=== PATIENT | male | born 1995 | race Caucasian/White ===

== ENCOUNTER 2020-10-05 09:14 | Emergency (ER) | payer OTHER ==
[2020-10-05 09:58] LABS: BASOPHILS # (AUTO) 0.1 10^3/uL (0.0-0.1); BASOPHILS % (AUTO) 1.4 %; EOSINOPHILS # (AUTO) 0.2 10^3/uL (0.0-0.7); EOSINOPHILS % (AUTO) 3.5 %; HCT - HEMATOCRIT 44.9 % (42.0-52.0); HGB - HEMOGLOBIN 15.7 g/dL (14.0-18.0); LYMPHOCYTES # (AUTO) 3.1 10^3/uL (1.5-3.5); LYMPHOCYTES % (AUTO) 47.6 %; MEAN CORPUSCULAR HEMOGLOBIN 32.6 pg (27.0-31.0); MEAN CORPUSCULAR VOLUME 93.3 fL (80.0-94.0); MEAN PLATELET VOLUME 9.5 fL (7.4-11.4); MONOCYTES # (AUTO) 0.5 10^3/uL (0.0-1.0); MONOCYTES % (AUTO) 7.4 %; NEUTROPHILS # (AUTO) 2.6 10^3/uL (1.5-6.6); NEUTROPHILS % (AUTO) 39.8 %; PLT - PLATELET COUNT 309 10^3/uL (130-450); RED BLOOD COUNT 4.81 10^6/uL (4.70-6.10); RED CELL DISTRIBUTION WIDTH 12.3 % (12.0-15.0); WHITE BLOOD COUNT 6.6 x10^3/uL (4.8-10.8)
[2020-10-05 10:12] LABS: ALBUMIN 4.9 g/dL (3.2-5.5); ALBUMIN/GLOBULIN RATIO 1.4 (1.0-2.2); BILIRUBIN,TOTAL 0.9 mg/dL (0.2-1.0); CALCIUM 10.1 mg/dL (8.5-10.3); CREATININE 0.9 mg/dL (0.6-1.2); POTASSIUM 4.1 mmol/L (3.5-5.0); TOTAL PROTEIN 8.4 g/dL (6.7-8.2)
[2020-10-05 11:14] LABS: BILIRUBIN,URINE NEGATIVE (NEGATIVE); CLARITY,URINE CLEAR (CLEAR); GLUCOSE, URINE (UA) NEGATIVE (NEGATIVE); KETONES,URINE (UA) NEGATIVE (NEGATIVE); LEUKOCYTE ESTERASE, URINE NEGATIVE (NEGATIVE); NITRITE,URINE NEGATIVE (NEGATIVE); OCCULT BLOOD,URINE NEGATIVE (NEGATIVE); PH,URINE 5.5 PH (5.0-7.5); PROTEIN,URINE NEGATIVE (NEGATIVE); UROBILINOGEN,URINE 0.2 (NORMAL) E.U./dL (NORMAL)
--- NOTE | 2020-10-05 13:05 | Ultrasound Report ---
PROCEDURE: Abdomen Limited INDICATIONS: RUQ pain TECHNIQUE: Real-time scanning was performed of the abdominal and retroperitoneal organs, with image documentatio n. COMPARISON: None. FINDINGS: Liver: The liver demonstrates diffusely increased echotexture without focal abnormalities which is c onsistent with chronic hepatocellular disease/hepatic steatosis. There are a few areas of focal fatty sparing near the gallbladder fossa. Gallbladder: Gallbladder is normal. No gallstones, gallbladder wall thickening, or pericholecystic f luid. Negative sonographic Vidal sign. Biliary ducts: Intrahepatic bile ducts are non-dilated. Extrahepatic bile duct caliber measures 5 m m. Normal is 6-7 mm or less in diameter, or 10 mm or less post-cholecystectomy. Pancreas: Visualized portions of the pancreas are sonographically normal. Kidneys: Right kidney is normal in size and echotexture. Right kidney measures 12.0 cm long; no hydr onephrosis or nephrolithiasis. No solid masses. Miscellaneous: No free abdominal fluid. IMPRESSION: Diffuse hepatic steatosis with focal areas of fatty sparing near the gallbladder fossa. Otherwise, no acute sonographic abnormalities identified in the imaged portions of the abdomen. Reviewed by: Rigoberto Orourke MD on 10/05/2020 1:04 PM PDT Approved by: Rigoberto Orourke MD on 10/05/2020 1:04 PM PDT Station ID: [id number]
[2020-10-05] MEDS ORDERED: IOVERSOL 320 100 ML VIAL IVP ONE ×2 (13:28→13:41)
--- NOTE | 2020-10-05 14:47 | ED Physician Documentation ---
PD HPI ABD PAIN - Stated complaint Stated Complaint: R FLANK PX,FEVER - Chief complaint Chief Complaint: Abd Pain - History obtained from History obtained from: Patient - History of Present Illness Timing - onset: Enter time (399), Today Timing - duration: Hours Timing - details: Gradual onset, Still present Quality: Aching, Sharp, Pain Location: RUQ, RLQ Improved by: Laying still Worsened by: Moving, Position, Palpation Associated symptoms: Diarrhea. No: Nausea, Vomiting, Constipation Similar symptoms before: Has not had sx before Recently seen: Not recently seen - Additional information Additional information: 25 y/o male awoke with abdominal pain and diarrhea. He went to work with the pain and was asked to come to the ED for evaluation of appendicitis as his pain was in the RLQ. He indicates his pain is upper and lower on the right. Review of Systems Constitutional: denies: Fever Eyes: denies: Decreased vision Ears: denies: Ear pain Nose: denies: Rhinorrhea / runny nose, Congestion Throat: denies: Sore throat Cardiac: denies: Chest pain / pressure, Palpitations Respiratory: denies: Dyspnea, Cough GI: reports: Abdominal Pain, Nausea, Diarrhea. denies: Vomiting, Constipation : denies: Dysuria, Hesitancy PD PAST MEDICAL HISTORY - Past Medical History Past Medical History: Yes Endocrine/Autoimmune: HyPOthyroidism Other Past Medical History: Fatty liver. - Past Surgical History Past Surgical History: No - Present Medications Home Medications: Ambulatory Orders Medication Instructions Recorded Confirmed Chromium Picolinate 1,000 mcg PO DAILY 10/05/20 10/05/20 Levothyroxine Sodium [Synthroid] 100 mcg PO DAILY 10/05/20 10/05/20 - Allergies Allergies/Adverse Reactions: Allergies Allergy/AdvReac Type Severity Reaction Status Date / Time benzalkonium chloride Allergy Hives Verified 10/05/20 09:37 [From [facility]] - Social History Does the pt smoke?: No Smoking Status: Never smoker Does the pt drink ETOH?: Yes Does the pt have substance abuse?: No - Immunizations Immunizations are current?: Yes - POLST Patient has POLST: No PD ED PE NORMAL - Vitals Vital signs reviewed: Yes (hyertensive mild ) - General General: Alert and oriented X 3, No acute distress - HEENT HEENT: Atraumatic, PERRL, EOMI - Neck Neck: Supple, no meningeal sign, No bony TTP - Cardiac Cardiac: RRR, No murmur - Respiratory Respiratory: No respiratory distress, Clear bilaterally - Abdomen Abdomen: Normal bowel sounds, Soft, Non distended, No organomegaly, Other (RUQ and RLQ pain to palpation. Seems like the RUQ is reproducible the RLQ is without garding or referred tenderness. ) - Back Back: No CVA TTP, No spinal TTP - Derm Derm: Normal color, Warm and dry, No rash - Extremities Extremities: No deformity, No edema - Neuro Neuro: Alert and oriented X 3, public relations officer 2-12 intact, No motor deficit, No sensory deficit, Normal speech Eye Opening: Spontaneous Motor: Obeys Commands Verbal: Oriented GCS Score: 15 - Psych Psych: Normal mood, Normal affect Results - Vitals Vitals: Vital Signs - 24 hr 10/05/20 10/05/20 10/05/20 09:33 09:59 11:37 Temperature 36.5 C Heart Rate 88 87 84 Respiratory 18 16 16 Rate Blood Pressure 138/74 H 135/81 H 118/72 O2 Saturation 99 96 97 10/05/20 10/05/20 13:15 15:09 Temperature 36.5 C Heart Rate 68 67 Respiratory 16 16 Rate Blood Pressure 126/75 119/72 O2 Saturation 97 97 Oxygen O2 Source Room air - Labs Labs: Laboratory Tests 10/05/20 10/05/20 10/05/20 09:52 09:52 11:08 WBC 6.6 RBC 4.81 Hgb 15.7 Hct 44.9 MCV 93.3 MCH 32.6 H MCHC 35.0 RDW 12.3 Plt Count 309 MPV 9.5 Neut # (Auto) 2.6 Lymph # (Auto) 3.1 [place] # (Auto) 0.5 Eos # (Auto) 0.2 Baso # (Auto) 0.1 Absolute Nucleated RBC 0.00 Nucleated RBC % 0.0 Sodium 138 Potassium 4.1 Chloride 104 Carbon Dioxide 23 Anion Gap 11.0 BUN 10 Creatinine 0.9 Estimated GFR (MDRD) 104 Glucose 100 Calcium 10.1 Total Bilirubin 0.9 AST 161 H ALT 271 H Alkaline Phosphatase 98 Total Protein 8.4 H Albumin 4.9 Globulin 3.5 Albumin/Globulin Ratio 1.4 Lipase 29 Urine Color YELLOW Urine Clarity CLEAR Urine pH 5.5 Ur Specific Beatrice 1.025 Urine Protein NEGATIVE Urine Glucose (UA) NEGATIVE Urine Ketones NEGATIVE Urine Occult Blood NEGATIVE Urine Nitrite NEGATIVE Urine Bilirubin NEGATIVE Urine Urobilinogen 0.2 (NORMAL) Ur Leukocyte Esterase NEGATIVE Ur Microscopic Review NOT INDICATED Urine Culture Comments NOT INDICATED - Rads (name of study) U/s gb Radiology: Prelim report reviewed ([facility] hepatic steatosis with focal areas of fatty sparing near the gallbladder fossa. Otherwise no acute sonographic abnormalities identified in the imaged portion of the abdomen), EMP read indepedently, See rad report CTab/pel Radiology: Prelim report reviewed (Impression: 1. CT of the abdomen pelvis without acute abnormalities to explain patient's symptoms. Normal appendix. Diffuse hepatic steatosis. Very small fat-containing umbilical and left inguinal hernias without acute inflammatory changes.), EMP read indepedently, See rad report PD MEDICAL DECISION MAKING - ED course Complexity details: reviewed results, re-evaluated patient, considered differential, d/w patient ED course: 25-year-old male with right-sided abdominal pain and diarrhea today was asked by his command to come to the emergency department for a rule out of appendicitis. The patient has no appetite is normal white blood cell count is examination is not consistent with acute appendicitis. He does however have right lower quadrant abdominal pain and a CT of the abdomen pelvis is obtained. Departure - Departure Disposition: 01 Home, Self Care Clinical Impression: Abdominal pain Qualifiers: Abdominal location: right lower quadrant Qualified Code(s): R10.31 - Right lower quadrant pain Condition: Stable Instructions: ED Abdominal Pain Unkn Cause Follow-Up: MAYITO VIGIL MD [Primary Care Provider] - Discharge Date/Time: 10/05/20 15:17
--- NOTE | 2020-10-05 15:02 | CT Report ---
PROCEDURE: Abdomen/Pelvis W INDICATIONS: RLQ pain CONTRAST: IV CONTRAST: Optiray 320 ml: 100 PO CONTRAST: *NO PO CONTRAST TECHNIQUE: After the administration of weight appropriate dose of intravenous contrast, 5 mm thick sections acqu ired from the diaphragms to the symphysis. 5 mm thick coronal and sagittal reformats were acquired. For radiation dose reduction, the following was used: automated exposure control, adjustment of mA and/or kV according to patient size. COMPARISON: None. FINDINGS: Image quality: Excellent. ABDOMEN: Lung bases: Lung bases are clear. Heart size is normal. Solid organs: Liver and spleen are normal in size and enhancement. Diffuse hypoattenuation of the li dayami compatible with hepatic steatosis. Gallbladder is unremarkable. Biliary system is non dilated. Pancreas enhances normally. No adrenal nodules. Kidneys demonstrate normal size and enhancement, wi thout hydronephrosis. Peritoneum and bowel: Bowel loops demonstrate normal wall thickness and caliber. No free fluid or a ir. Normal appendix. Nodes and vessels: No retroperitoneal or mesenteric adenopathy by size criteria. Aorta and inferior vena cava are normal in size. Miscellaneous: No ventral hernias. Tiny fat-containing umbilical hernia without acute inflammation. PELVIS: Genitourinary: Bladder wall thickness is normal. Miscellaneous: No pelvic adenopathy. There is a small fat-containing left inguinal hernia without a cute inflammation. Bones: No suspicious bony lesions. No acute vertebral body compression fractures. IMPRESSION: 1. CT abdomen and pelvis without acute abnormalities to explain patient's symptoms. 2. Normal appendix. 3. Diffuse hepatic steatosis. 4. Very small fat-containing umbilical and left inguinal hernias without acute inflammatory changes. Reviewed by: Rigoberto Orourke MD on 10/05/2020 3:01 PM PDT Approved by: Rigoberto Orourke MD on 10/05/2020 3:01 PM PDT Station ID: [id number]
[2020-10-05 16:19] VITALS: BP 119/72
== END 2020-10-05 15:17 | disposition home or self-care (01) ==
LOC: ED 09:14
DX: R10.31 Right lower quadrant pain (principal)
CPT/HCPCS: 36415; 74177; 76705; 80053; 81003; 83690; 85025; 99284; Q9967; 81001; 87086